=== PATIENT | female | born 1970 | race Caucasian/White ===

== ENCOUNTER → 2016-10-22 | Outpatient (CLI) | payer BC | LOC: WC.BC 14:01 | PROVIDERS: ATTEND Physician Assistant | DX: D48.61 Neoplasm of uncertain behavior of right breast (principal); R92.1 Mammographic calcification found on diagnostic imaging of breast; N64.4 Mastodynia; N63 Unspecified lump in breast | CPT/HCPCS: 76642; 77062; G0204 ==

== ENCOUNTER → 2016-10-26 | Outpatient (CLI) | payer BC ==
[~2016-10-26] MED LIST: LIDOCAINE 1% 30ml (STERI-PAK) ONE
== END ==
LOC: IMA 12:27
PROVIDERS: ATTEND Physician Assistant
DX: C50.411 Malignant neoplasm of upper-outer quadrant of right female breast (principal); Z17.0 Estrogen receptor positive status [ER+]; R92.8 Other abnormal and inconclusive findings on diagnostic imaging of breast